=== PATIENT | female | born 1945 | race Caucasian/White ===

== ENCOUNTER 2022-07-12 14:59 | Emergency (ER) | payer MEDICARE, OTHER ==
[2022-07-12] MEDS ORDERED: ONDANSETRON 4 MG/2 ML VIAL IVPB ONE (15:07)
[2022-07-12] MEDS ORDERED: SODIUM CHLORIDE 1,000 ML IV ONE (15:08)
[2022-07-12] MEDS ORDERED: ACETAMINOPHEN 1000 MG/100 ML BAG IVPB ONE (15:22)
[2022-07-12] MEDS ORDERED: ACETAMINOPHEN INJECTION 100 ML IVPB ONE (15:26)
[2022-07-12] MEDS ORDERED: ONDANSETRON 4 MG/2 ML VIAL ONE (15:26)
[2022-07-12 15:40] VITALS: BP 114/43; PULSE 72; RESP 20; TEMP 97.2; BMI 22.6
[2022-07-12] MEDS ORDERED: morphine CARPU-JECT 4 MG/1 ML DISP.SYRIN IVPUSH ONE (15:46)
[2022-07-12] MEDS ORDERED: morphine SULFATE 4 MG/ML VIAL ONE (16:17)
[2022-07-12 16:19] LABS: HEMATOCRIT 42.5 % (32.4-45.2); HEMOGLOBIN 14.7 G/dL (10.7-15.3); MCH 28.7 pg (25.7-33.7); MCHC 34.6 g/dl (32.0-36.0); MEAN CELL VOLUME 82.9 fl (80-96); PLATELET COUNT 225.5 10^3/uL (134-434); RBC 5.13 10^6/uL (3.60-5.2); RDW 14.8 % (11.6-15.6); WHITE BLOOD COUNT 7.6 10^3/uL (4.0-10.8)
[2022-07-12 16:23] LABS: ALBUMIN 4.2 g/dl (3.4-5.0); BILIRUBIN,TOTAL 0.8 mg/dl (0.2-1); TOT PROT 6.7 g/dl (6.4-8.2)
[2022-07-12] MEDS ORDERED: METOCLOPRAMIDE HCL INJECTION 10 MG/2 ML VIAL IVPUSH ONE (16:31)
[2022-07-12 17:07] LABS: PLATELET ESTIMATE ADEQUATE
[2022-07-12] MEDS ORDERED: METOCLOPRAMIDE HCL INJECTION 10 MG/2 ML VIAL ONE (17:47)
== END 2022-07-12 20:11 | disposition home or self-care (01) ==
LOC: FER 14:59
PROC: 3E033NZ Introduction of Analgesics, Hypnotics, Sedatives into Peripheral Vein, Percutaneous Approach (ICD-10-PCS; principal; 2022-07-12)
PROC: 3E033GC Introduction of Other Therapeutic Substance into Peripheral Vein, Percutaneous Approach (ICD-10-PCS; 2022-07-12)
PROC: 3E033GC Introduction of Other Therapeutic Substance into Peripheral Vein, Percutaneous Approach (ICD-10-PCS; 2022-07-12)
PROC: 3E033GC Introduction of Other Therapeutic Substance into Peripheral Vein, Percutaneous Approach (ICD-10-PCS; 2022-07-12)
PROC: 3E0337Z Introduction of Electrolytic and Water Balance Substance into Peripheral Vein, Percutaneous Approach (ICD-10-PCS; 2022-07-12)
DX: K56.41 Fecal impaction (principal)
CPT/HCPCS: 36415; 71045-TC-FY; 74177-TC; 80053; 81003; 83690; 84484; 85027; 87086; 99285-25; Q9967